=== PATIENT | male | born 1960 | race Caucasian/White ===

== ENCOUNTER → 2018-11-20 | Day surgery (SDC) | payer OTHER, BC ==
[~2018-11-20] MED LIST: Midazolam 1 MG/ML 2 ML SDV ONE; Propofol 200 MG/20 ML SDV ONE; fentaNYL 100 MCG/2 ML SDV ONE
[2018-11-20] MEDS: Dextrose 5%-Lactated Ringers 1,000 ML IV SCH (06:30)
[2018-11-20 08:14] VITALS: BP 113/71
--- NOTE | 2018-11-23 08:11 | OR ---
DATE OF PROCEDURE: 11/20/2018 PREOPERATIVE DIAGNOSIS: History of colon polyps. POSTOPERATIVE DIAGNOSIS: Normal colonoscopic examination. OPERATIVE PROCEDURE: Flexible colonoscopy. ANESTHESIA: IV sedation. INDICATION FOR PROCEDURE: This is a 58-year-old male, presenting with indications for screening colonoscopy. He did in the past have some colon polyps removed. Plan is to proceed with a colonoscopy with biopsies and/or polypectomy as indicated. Potential risks including bleeding and perforation were discussed and the patient wishes to proceed. DETAILS OF PROCEDURE: The patient was taken to the operating room and placed in a left lateral decubitus position. IV sedation was administered, after which the initial digital rectal exam was performed and was unremarkable. The colonoscope was then passed into the rectum with retroflexion revealing uncomplicated hemorrhoidal columns. The scope was then passed directly to the level of the cecum. There was some scattered solid and liquid stool, but vast majority of the mucosal surfaces were well-visualized. To that level, no abnormalities were noted, specifically no diverticula, no areas of colitis, no polyps or additional findings of neoplasia. Scope was then withdrawn, the above findings reconfirmed, procedure was then concluded. The patient was taken to the recovery room in satisfactory condition. With personal history of colon polyps, the patient should have a repeat colonoscopy in 5 years. Sharif Graham MD /[id number]
== END ==
LOC: JP.SDS 05:52
PROVIDERS: ATTEND Surgery
DX: Z12.11 Encounter for screening for malignant neoplasm of colon (principal); Z86.010 Personal history of colon polyps; K21.9 Gastro-esophageal reflux disease without esophagitis; E78.5 Hyperlipidemia, unspecified; E66.9 Obesity, unspecified
CPT/HCPCS: 45378; J2250; J2704; J3010; J7042

== ENCOUNTER 2022-11-18 07:26 | Day surgery (SDC) | payer MEDICAID ==
[~2022-11-18 07:26] MED LIST changes: +Bupivacaine 0.5% 30 ML SDV ONE; -Midazolam 1 MG/ML 2 ML SDV ONE; -Propofol 200 MG/20 ML SDV ONE; -fentaNYL 100 MCG/2 ML SDV ONE
[2022-11-18] MEDS ORDERED: fentaNYL 100 MCG/2 ML SDV ONE (07:27)
[2022-11-18] MEDS ORDERED: Propofol 200 MG/20 ML SDV ONE (07:27)
[2022-11-18] MEDS ORDERED: Midazolam 1 MG/ML 2 ML SDV ONE ×2 (07:27→09:55)
[2022-11-18] MEDS ORDERED: Bupivacaine 0.5% 30 ML SDV ONE (07:29)
[2022-11-18 07:50] LABS: HEMATOCRIT 43.9 % (38.4-49.7); HEMOGLOBIN 14.6 g/dL (12.9-16.9); MEAN CORPUSCULAR HEMOGLOBIN 29.3 pg (31.6-35.5); MEAN CORPUSCULAR HGB CONC 33.3 g/dL (31.6-35.5); RED BLOOD CELL COUNT 4.99 M/uL (4.14-5.76); WHITE BLOOD CELL COUNT,WBC 7.2 K/uL (3.2-11.0)
[2022-11-18] MEDS ORDERED: Lactated Ringers 1,000 ML IV SCH (08:00)
[2022-11-18] MEDS ORDERED: Nozin Nasal Sanitizer NASBOTH ONE (08:00)
[2022-11-18] MEDS ORDERED: ceFAZolin 1 GM in Premix Bag 1 BAG IV ONE (08:00)
[2022-11-18 08:11] LABS: ALANINE AMINOTRANSFERASE,ALT 43 U/L (12-78); ALBUMIN 3.8 g/dL (3.4-5.0); ALKALINE PHOSPHATASE 63 U/L (46-116); ASPARTATE AMNIOTRANSFERASE,AST 25 U/L (15-37); BILIRUBIN TOTAL 0.4 mg/dL (0.2-1.0); BLOOD UREA NITROGEN,BUN 12 mg/dL (7-18); CARBON DIOXIDE,CO2 26 mmol/L (21-32); CHLORIDE,CL 103 mmol/L (100-108); CREATININE 1.1 mg/dL (0.8-1.3); ESTIMATED GFR 76 mL/min (>60); GLUCOSE RANDOM 128 mg/dL (74-106); PROTEIN TOTAL,TP 7.5 g/dL (6.4-8.2); SODIUM,NA 137 mmol/L (140-148)
[2022-11-18] MEDS ORDERED: Dexamethasone 4 MG/ML SDV ONE (11:35)
[2022-11-18] MEDS ORDERED: Ondansetron 4 MG/2 ML SDV ONE (11:35)
[2022-11-18] MEDS ORDERED: Acetaminophen/oxyCODONE 325-5 MG Tab PO PRN (13:24)
[2022-11-18 13:48] VITALS: BP 128/71; PULSE 71
== END 2022-11-18 14:35 | disposition home or self-care (01) ==
LOC: JP.SDS 07:26
PROVIDERS: ATTEND Specialist
DX: M75.102 Unspecified rotator cuff tear or rupture of left shoulder, not specified as traumatic (principal); M19.012 Primary osteoarthritis, left shoulder; M25.812 Other specified joint disorders, left shoulder; K21.9 Gastro-esophageal reflux disease without esophagitis; E78.00 Pure hypercholesterolemia, unspecified; E66.9 Obesity, unspecified; Z68.37 Body mass index [BMI] 37.0-37.9, adult
CPT/HCPCS: 29824; 29826; 29827; 36415; 80053; 85027; A9270; C1713; J0690; J1100; J2250; J2405; J2704; J3010; J3490; J7120

== ENCOUNTER 2022-12-30 05:25 | Emergency (ER) | payer MEDICAID ==
[2022-12-30] MEDS ORDERED: Sodium Chloride 0.9% 10 ML Syringe FLUSH PRN (05:33)
[2022-12-30] MEDS ORDERED: Morphine 4 MG/ML Syringe IVPUSH PRN (05:33)
[2022-12-30] MEDS ORDERED: Aspirin 81 MG Tab.Chew PO ONE (05:33)
[2022-12-30 05:41] LABS: BASOPHILS ABSOLUTE AUTO 0.05 K/uL (0.00-0.10); BASOPHILS PERCENT AUTO 0.5 % (0.1-1.3); EOSINOPHILS ABSOLUTE AUTO 0.44 K/uL (0.00-0.40); EOSINOPHILS PERCENT AUTO 4.4 % (0.0-5.4); HEMATOCRIT 41.7 % (38.4-49.7); HEMOGLOBIN 14.3 g/dL (12.9-16.9); IMMATURE GRAN PERCENT AUTO 0.2 % (0.0-0.7); LYMPHOCYTES ABSOLUTE AUTO 5.15 K/uL (0.8-3.3); MEAN CORPUSCULAR HEMOGLOBIN 29.1 pg (31.6-35.5); MEAN CORPUSCULAR HGB CONC 34.3 g/dL (31.6-35.5); MEAN CORPUSCULAR VOLUME 84.8 fL (81.4-99.0); MONOCYTES ABSOLUTE AUTO 0.96 K/uL (0.20-0.90); MONOCYTES PERCENT AUTO 9.7 % (3.3-12.6); NEUTROPHILS ABSOLUTE AUTO 3.28 K/uL (1.0-7.6); NEUTROPHILS PERCENT AUTO 33.2 % (40.0-78.1); PLATELET COUNT,PLT 266 K/uL (130-375); RED BLOOD CELL COUNT 4.92 M/uL (4.14-5.76); WHITE BLOOD CELL COUNT,WBC 9.9 K/uL (3.2-11.0)
[2022-12-30 05:42] LABS: IMMATURE GRAN ABSOLUTE AUTO 0.02 K/uL (0.00-0.23)
[2022-12-30] MEDS: Nitroglycerin 0.4 MG Tab.SL SL PRN ×2 (05:45→05:50)
[2022-12-30] MEDS ORDERED: Aluminum Hydroxide/Magnesium Hydroxide/Simethicone Susp 30 ML Cup PO ONE (05:59)
[2022-12-30 06:03] LABS: ALANINE AMINOTRANSFERASE,ALT 41 U/L (12-78); ALBUMIN 3.8 g/dL (3.4-5.0); ALKALINE PHOSPHATASE 71 U/L (46-116); ANION GAP 9.5 mmol/L (5.0-14.0); ASPARTATE AMNIOTRANSFERASE,AST 29 U/L (15-37); BILIRUBIN TOTAL 0.3 mg/dL (0.2-1.0); BLOOD UREA NITROGEN,BUN 17 mg/dL (7-18); CALCIUM 8.8 mg/dL (8.5-10.1); CARBON DIOXIDE,CO2 26 mmol/L (21-32); CHLORIDE,CL 105 mmol/L (100-108); CREATININE 1.1 mg/dL (0.8-1.3); EST CRCL DRUG DOSING (CG) 74.16 mL/min; ESTIMATED GFR 76 mL/min (>60); GLUCOSE RANDOM 131 mg/dL (74-106); LIPASE 128 U/L (73-393); POTASSIUM,K 3.6 mmol/L (3.6-5.2); PROTEIN TOTAL,TP 7.5 g/dL (6.4-8.2); SODIUM,NA 140 mmol/L (140-148)
[2022-12-30] MEDS ORDERED: Heparin Sodium 5,000 Units/ML Vial IVPUSH ONE (06:06)
[2022-12-30] MEDS ORDERED: Heparin Sodium/D5W 25,000 UNITS/500 ML BAG IV SCH (06:15)
[2022-12-30] MEDS ORDERED: Nitroglycerin/D5W 25 MG/250 ML BOTTLE IV SCH (06:30)
[2022-12-30] MEDS ORDERED: HYDROmorphone 1 MG/ML Syringe IVPUSH ONE (06:41)
[2022-12-30 06:53] LABS: PROTHROMBIN TIME 9.9 sec (9.2-10.6); PTT,PARTIAL THROMBOPLSTIN TIME 24.8 sec (21.8-27.3)
[2022-12-30 07:07] VITALS: BP 126/76; PULSE 59
== END 2022-12-30 07:35 ==
LOC: JP.ED 05:25
DX: I21.4 Non-ST elevation (NSTEMI) myocardial infarction (principal); E78.00 Pure hypercholesterolemia, unspecified; K21.9 Gastro-esophageal reflux disease without esophagitis; E66.9 Obesity, unspecified; Z83.6 Family history of other diseases of the respiratory system; Z79.899 Other long term (current) drug therapy
CPT/HCPCS: 36415; 71045; 80053; 83605; 83690; 83735; 84484; 85025; 85610; 85730; 93005; 96365; 96368; 96375; 96376; 99285; A9270; J1170; J1644; J2270; J3490

== ENCOUNTER 2023-06-30 08:43 | Day surgery (SDC) | payer MEDICAID ==
[~2023-06-30 08:43] MED LIST changes: -Bupivacaine 0.5% 30 ML SDV ONE; +Lactated Ringers 1,000 ML IV SCH
[2023-06-30] MEDS ORDERED: Nozin Nasal Sanitizer NASBOTH ONE (08:45)
[2023-06-30] MEDS ORDERED: Rocuronium 50 MG/5 ML Vial ONE (09:30)
[2023-06-30] MEDS ORDERED: Ondansetron 4 MG/2 ML SDV ONE (09:30)
[2023-06-30] MEDS ORDERED: Neostigmine Methylsulfate 1 MG/ML 5 ML Syringe ONE (09:30)
[2023-06-30] MEDS ORDERED: Glycopyrrolate 0.2 MG/ML 5 ML MDV ONE (09:30)
[2023-06-30] MEDS ORDERED: Dexamethasone 4 MG/ML SDV ONE (09:30)
[2023-06-30] MEDS ORDERED: Propofol 200 MG/20 ML SDV ONE (09:30)
[2023-06-30] MEDS ORDERED: Succinylcholine 200 MG/10 ML MDV ONE (09:30)
[2023-06-30] MEDS ORDERED: fentaNYL 250 MCG/5 ML SDV ONE (09:31)
[2023-06-30] MEDS ORDERED: Midazolam 1 MG/ML 2 ML SDV ONE (09:31)
[2023-06-30] MEDS ORDERED: Lactated Ringers 1,000 ML IV SCH (09:45)
[2023-06-30 09:51] LABS: HEMATOCRIT 40.9 % (38.4-49.7); HEMOGLOBIN 13.8 g/dL (12.9-16.9); MEAN CORPUSCULAR HEMOGLOBIN 28.6 pg (31.6-35.5); MEAN CORPUSCULAR HGB CONC 33.7 g/dL (31.6-35.5); MEAN CORPUSCULAR VOLUME 84.9 fL (81.4-99.0); RED BLOOD CELL COUNT 4.82 M/uL (4.14-5.76); WHITE BLOOD CELL COUNT,WBC 5.8 K/uL (3.2-11.0)
[2023-06-30] MEDS ORDERED: ceFAZolin 2 GM in Sodium Chloride 0.9% 50 ML IV ONE (10:00)
[2023-06-30] MEDS ORDERED: ceFAZolin 2 GM in Premix Bag 1 BAG IV ONE (10:00)
[2023-06-30 10:17] LABS: A/G RATIO 1.1 (1.2-2.2); ALANINE AMINOTRANSFERASE,ALT 27 U/L (12-78); ALBUMIN 3.6 g/dL (3.4-5.0); ALKALINE PHOSPHATASE 58 U/L (46-116); ANION GAP 9.1 mmol/L (5.0-14.0); ASPARTATE AMNIOTRANSFERASE,AST 22 U/L (15-37); BILIRUBIN TOTAL 0.4 mg/dL (0.2-1.0); BLOOD UREA NITROGEN,BUN 11 mg/dL (7-18); CALCIUM 8.5 mg/dL (8.5-10.1); CARBON DIOXIDE,CO2 23 mmol/L (21-32); CHLORIDE,CL 108 mmol/L (100-108); CREATININE 1.1 mg/dL (0.8-1.3); EST CRCL DRUG DOSING (CG) 70.97 mL/min; ESTIMATED GFR 75 mL/min (>60); GLUCOSE RANDOM 115 mg/dL (74-106); POTASSIUM,K 3.8 mmol/L (3.6-5.2); PROTEIN TOTAL,TP 6.9 g/dL (6.4-8.2); SODIUM,NA 140 mmol/L (140-148)
[2023-06-30 15:55] VITALS: BP 155/99; PULSE 52
== END 2023-06-30 15:50 | disposition home or self-care (01) ==
LOC: JP.SDS 08:43
PROVIDERS: ATTEND Specialist
DX: M25.811 Other specified joint disorders, right shoulder (principal); M75.111 Incomplete rotator cuff tear or rupture of right shoulder, not specified as traumatic; I10 Essential (primary) hypertension; K21.9 Gastro-esophageal reflux disease without esophagitis; F32.A Depression, unspecified; Z79.899 Other long term (current) drug therapy; Z88.0 Allergy status to penicillin
CPT/HCPCS: 29826; 29827; 36415; 80053; 85027; A9270; C1713; J0330; J0690; J1100; J2250; J2405; J2704; J2710; J3010; J3490; J7120